=== PATIENT | female | born 1995 | race African-American/Black ===

== ENCOUNTER 2023-03-20 16:10 | Emergency (ER) | payer OTHER, SELFPAY ==
[2023-03-20] MEDS ORDERED: Ondansetron PF 4 MG/2 ML Vial ONE (16:39)
[2023-03-20] MEDS ORDERED: diphenhydrAMINE 50 MG/ML VIAL ONE (16:39)
[2023-03-20] MEDS ORDERED: Magnesium 2 GM/50 ML BAG (IN WATER) ONE (16:39)
[2023-03-20] MEDS ORDERED: Ketorolac Tromethamine 30 MG/ML VIAL ONE (16:39)
[2023-03-20] MEDS ORDERED: Metoclopramide HCl 10 MG/2 ML VIAL ONE (16:39)
[2023-03-20] MEDS ORDERED: Acetaminophen 500 MG TAB ONE (16:39)
== END 2023-03-20 18:31 | disposition home or self-care (01) ==
LOC: ERS 16:10
DX: G43.909 Migraine, unspecified, not intractable, without status migrainosus (principal); Z87.891 Personal history of nicotine dependence
CPT/HCPCS: 96365; 96368; 96375; J1200; J1885; J2405; J2765; J3475

== ENCOUNTER 2023-03-26 23:46 | Emergency (ER) | payer OTHER ==
[2023-03-27 00:22] LABS: #Basophils 0.1 thou/uL (0.0-0.2); #Eosinphils 0.3 thou/uL (0.0-0.7); #Monocytes 0.5 thou/uL (0.11-0.59); #Neutrophils 13.6 thou/uL (1.40-6.50); %Basophils 0.4 % (0.0-1.0); %Eosinophils 1.6 % (0.0-10.0); %Lymphocytes 15.7 % (21.0-51.0); %Neutrophils 78.9 % (42.0-75.0); Hematocrit 34.9 % (36.0-47.0); Hemoglobin 10.6 g/dL (12.0-16.0); Mean Corpuscular HGB CONC 30.4 g/dL (32.0-36.0); Mean Platelet Volume 9.6 fL (7.4-10.4); Platelet Count 864 10x3/uL (130-400); Red Blood Cell (RBC) Count 4.42 mill/uL (4.20-5.40); White Blood Cell (WBC) Count 17.2 10x3/uL (4.8-10.8)
[2023-03-27 00:45] LABS: ALT (SGPT) 29 U/L (8-55); AST (SGOT) 19 U/L (5-34); Alkaline Phosphatase 142 U/L (40-110); Anion Gap 15 mmol/L (10-20); Anisocytosis MARKED = >30 cells HPF (0-5); BUN (Urea Nitrogen) 10 mg/dL (7.0-18.7); Bilirubin, Total 0.3 mg/dL (0.2-1.2); Burr Cells SLIGHT = 2-5 cells HPF (0-1); Calc. Creatinine Clearance 0 mL/min (70-130); Calcium 9.7 mg/dL (7.8-10.44); Carbon Dioxide 20 mmol/L (22-29); CellaVision Operator ID lab.sh2; Chloride 109 mmol/L (98-107); Estimated GFR 117; Globulin 3.7 g/dL (2.4-3.5); Glucose 88 mg/dL (70-105); Hypochromia SLIGHT = 6-15 cells HPF (0-5); Macrocytosis MODERATE=16-30 cells HPF (0-5); Ovalocytes SLIGHT = 2-5 cells HPF (0-1); Platelet Adequacy Comment Platelets Increased; Polychromasia MODERATE = 3-4 cells HPF (0-2); Potassium 4.2 mmol/L (3.5-5.1); Protein, Total 7.7 g/dL (6.0-8.3); Smudge Cells 5.9 %; Sodium 140 mmol/L (136-145)
[2023-03-27] MEDS ORDERED: Ketorolac Tromethamine 30 MG/ML VIAL ONE ×2 (01:15→07:13)
[2023-03-27] MEDS ORDERED: diphenhydrAMINE 50 MG/ML VIAL ONE (01:15)
[2023-03-27] MEDS ORDERED: Metoclopramide HCl 10 MG/2 ML VIAL ONE (01:15)
[2023-03-27 05:27] LABS: Bacteria/HPF 4+ HPF (None Seen); Bilirubin Negative (Negative); Blood, Urine 3+ (Negative); CAUTI Indications for Culture < 2yrs of age; Clarity Extra Turbid (Clear); Glucose, Urine (Dipstick) Normal (Negative); Ketone, Urine Negative (Negative); Leukocyte 500 Leu/uL (Negative); Nitrite Negative (Negative); Protein, Urine (Dipstick) 50 mg/dL (Neg-Trace); RBC/HPF Greater than 50 HPF (0-3); Specific Gravity, Urine 1.011 (1.002-1.036); Squamous Epithelial 21-50 HPF (0-3); Urobilinogen Normal mg/dL (Less than 2); WBC/HPF Greater than 50 HPF (0-3); pH, Urine 5.5 (5.0-9.0)
[2023-03-27 05:32] LABS: Urine Culture Reflex Yes Yes
[2023-03-27] MEDS ORDERED: cefTRIAXone (ROCEPHIN) 1 GM VIAL ONE (06:20)
== END 2023-03-27 07:25 | disposition home or self-care (01) ==
LOC: ERS 23:46
DX: R51.9 Headache, unspecified (principal); N39.0 Urinary tract infection, site not specified; G97.1 Other reaction to spinal and lumbar puncture; Z87.891 Personal history of nicotine dependence
CPT/HCPCS: 36415; 70450; 80053; 81001; 83605; 85025; 86850; 86900; 86901; 87040; 87086; 93005; 94760; 96365; 96375; 96376; J0696; J1200; J1885; J2765

== ENCOUNTER 2023-04-12 14:49 | Emergency (ER) | payer OTHER ==
[2023-04-12] MEDS ORDERED: Ondansetron ODT 4 MG TAB ONE (15:58)
[2023-04-12] MEDS ORDERED: Dicyclomine 20 MG/2 ML VIAL ONE (15:58)
[2023-04-12 16:06] LABS: #Basophils 0.1 thou/uL (0.0-0.2); #Eosinphils 0.4 thou/uL (0.0-0.7); #Monocytes 0.4 thou/uL (0.11-0.59); #Neutrophils 4.3 thou/uL (1.40-6.50); %Basophils 0.7 % (0.0-1.0); %Eosinophils 5.8 % (0.0-10.0); %Lymphocytes 29.2 % (21.0-51.0); %Monocytes 5.6 % (0.0-10.0); %Neutrophils 58.4 % (42.0-75.0); Hemoglobin 10.4 g/dL (12.0-16.0); Mean Corpuscular HGB CONC 31.5 g/dL (32.0-36.0); Mean Corpuscular Hemoglobin 25.5 pg (27.0-31.0); Mean Corpuscular Volume 80.9 fl (78.0-98.0); Mean Platelet Volume 9.6 fL (7.4-10.4); Platelet Count 362 10x3/uL (130-400); RBC Distribution Width 26.6 % (11.5-14.5); Red Blood Cell (RBC) Count 4.08 mill/uL (4.20-5.40); White Blood Cell (WBC) Count 7.3 10x3/uL (4.8-10.8)
[2023-04-12 16:14] LABS: Bacteria/HPF None Seen HPF (None Seen); Bilirubin Negative (Negative); Blood, Urine 3+ (Negative); CAUTI Indications for Culture Dysuria,urgency,freq; Clarity Clear (Clear); Glucose, Urine (Dipstick) Normal (Negative); Ketone, Urine Negative (Negative); Leukocyte Negative Leu/uL (Negative); Nitrite Negative (Negative); Protein, Urine (Dipstick) Negative (Neg-Trace); RBC/HPF Greater than 50 HPF (0-3); Specific Gravity, Urine 1.015 (1.002-1.036); Squamous Epithelial 0-3 HPF (0-3); Urobilinogen Normal mg/dL (Less than 2); WBC/HPF 0-3 HPF (0-3); pH, Urine 5.5 (5.0-9.0)
[2023-04-12 16:15] LABS: Urine Culture Reflex No No
[2023-04-12 16:32] LABS: Anisocytosis MODERATE=16-30 cells HPF (0-5); CellaVision Operator ID LAB.MJL; Elliptocytes SLIGHT = 2-5 cells HPF (0-1); Hypochromia SLIGHT = 6-15 cells HPF (0-5); Ovalocytes SLIGHT = 2-5 cells HPF (0-1); Platelet Adequacy Comment Platelets Normal; Poikilocytosis SLIGHT = 6-15 cells HPF (0-5); Polychromasia SLIGHT = 2-3 cells HPF (0-2); Schistocytes SLIGHT = 2-5 cells HPF (0-1)
[2023-04-12 16:36] LABS: ALT (SGPT) 15 U/L (8-55); AST (SGOT) 16 U/L (5-34); Albumin 3.9 g/dL (3.5-5.0); Alkaline Phosphatase 109 U/L (40-110); Anion Gap 10 mmol/L (10-20); BUN (Urea Nitrogen) 15 mg/dL (7.0-18.7); Bilirubin, Total 0.2 mg/dL (0.2-1.2); Calc. Creatinine Clearance 0 mL/min (70-130); Calcium 9.7 mg/dL (7.8-10.44); Carbon Dioxide 24 mmol/L (22-29); Chloride 107 mmol/L (98-107); Estimated GFR 104; Globulin 3.5 g/dL (2.4-3.5); Glucose 86 mg/dL (70-105); Potassium 4.1 mmol/L (3.5-5.1); Protein, Total 7.4 g/dL (6.0-8.3); Sodium 137 mmol/L (136-145)
[2023-04-12 16:58] LABS: SARS-CoV-2 NAA Rapid Test Not Detected (NotDetected)
[2023-04-12] MEDS ORDERED: Ibuprofen 200 MG TAB ONE (17:45)
== END 2023-04-12 18:03 | disposition home or self-care (01) ==
LOC: ERS 14:49
DX: R19.7 Diarrhea, unspecified (principal); G97.1 Other reaction to spinal and lumbar puncture; Z20.822 Contact with and (suspected) exposure to COVID-19
CPT/HCPCS: 36415; 80053; 81001; 85025; 87086; 96372; 99284; Q0162

== ENCOUNTER 2024-01-12 15:59 | Emergency (ER) | payer MEDICAID, OTHER ==
[2024-01-12] MEDS ORDERED: Ketorolac Tromethamine 30 MG (1 mL) VIAL ONE (17:18)
[2024-01-12] MEDS ORDERED: Acetaminophen 325 MG TAB ONE (17:36)
== END 2024-01-12 18:36 | disposition home or self-care (01) ==
LOC: ERS 15:59
DX: M54.2 Cervicalgia (principal); I10 Essential (primary) hypertension; F17.200 Nicotine dependence, unspecified, uncomplicated
CPT/HCPCS: 72125; 96372; J1790; J1885